=== PATIENT | male | born 1955 | race Caucasian/White ===

== ENCOUNTER 2019-11-04 10:51 | Emergency (ER) | payer MEDICARE ==
[2019-11-04] MEDS ORDERED: fentaNYL 100 MCG/2 ML SDV IVPUSH PRN (11:51)
[2019-11-04] MEDS ORDERED: Ondansetron 4 MG/2 ML SDV IVPUSH ONE (11:52)
[2019-11-04] MEDS ORDERED: Sodium Chloride 0.9% 1,000 ML IV SCH (12:00)
--- NOTE | 2019-11-04 12:02 | EDM.PDOC ---
ED HPI GENERAL MEDICAL PROBLEM - General Chief Complaint: General Stated Complaint: RIB PAIN AND SOB FROM FALL Time Seen by Provider: 11/04/19 11:55 Source of Information: Reports: Patient History Limitations: Reports: No Limitations - History of Present Illness INITIAL COMMENTS - FREE TEXT/NARRATIVE: 63-year-old male with a history of COPD and hypertension presents emergency d epartment with left anterior chest pain and left wrist discomfort. These were triggered by a fall on night. He landed on the left side of his body after tripping on a rock. He landed on hard cement. He fell from ending level. It is increased with any type of movement or deep breathing. It is moderately severe. Pain does not radiate. Denies any other injuries. He is a smoker and has a history of COPD. He drinks daily and his last alcohol intake was last night. Denies a history of withdrawal. Not drinking on the night that he was injured. Not have any immunocompromising conditions. Is not on anticoagulants. Left Chest Pain Score (Numeric/FACES): 10 - Related Data Allergies Allergy/AdvReac Type Severity Reaction Status Date / Time amoxicillin Allergy Rash Verified 11/04/19 11:20 Home Meds: Home Meds Albuterol Sulfate [Albuterol Sulfate Hfa] 1 applic IH Q4HR PRN 11/04/19 [History] Albuterol [Proventil Neb Soln] 2.5 mg IH Q4HR PRN 11/04/19 [History] Aspirin [Halfprin] 162 mg PO DAILY 11/04/19 [History] Lisinopril/Hydrochlorothiazide [Lisinopril-Hctz 10-12.5 mg Tab] 1 each PO DAILY 11/04/19 [History] Past Medical History HEENT History: Reports: Cataract Cardiovascular History: Reports: Hypertension Respiratory History: Reports: COPD Gastrointestinal History: Reports: GERD, Other (See Below) Other Gastrointestinal History: elevated liver enzymes Musculoskeletal History: Reports: Fracture Psychiatric History: Reports: Addiction, Depression Hematologic History: Reports: Anemia Dermatologic History: Reports: Eczema, Other (See Below) Other Dermatologic History: tinea pedis. warts - Infectious Disease History Infectious Disease History: Reports: C-Difficile, Measles - Past Surgical History HEENT Surgical History: Reports: Cataract Surgery GI Surgical History: Reports: Colonoscopy, Polypectomy Social & Family History - Tobacco Use Smoking Status *Q: Current Every Day Smoker Years of Tobacco use: 46 Packs/Tins Daily: 1 - Recreational Drug Use Recreational Drug Use: No ED ROS GENERAL - Review of Systems Review Of Systems: See Below Constitutional: Reports: No Symptoms HEENT: Reports: No Symptoms Respiratory: Reports: Shortness of Breath. Denies: Cough Cardiovascular: Reports: No Symptoms GI/Abdominal: Denies: Nausea, Vomiting : Reports: No Symptoms Musculoskeletal: Reports: Other (Wrist pain) Skin: Reports: Other (Abrasion left knee) Neurological: Denies: Confusion, Dizziness, Numbness ED EXAM, GENERAL - Physical Exam Exam: See Below Exam Limited By: No Limitations General Appearance: Alert, WD/WN, Moderate Distress Head: Atraumatic Neck: Normal Inspection, Supple, Non-Tender, Full Range of Motion Respiratory/Chest: No Respiratory Distress, Other (Decreased sounds on the left side.) Cardiovascular: Regular Rate, Rhythm, No Gallop, No Murmur Extremities: Other (Is swelling over the left wrist. No other deformities are present.) Neurological: Alert, Oriented, Normal Cognition, No Motor/Sensory Deficits Psychiatric: Normal Affect Skin Exam: Other (Abrasion left anterior knee) Course - Vital Signs Text/Narrative:: Presented to the ED with left anterior chest pain as well as left wrist discomfort. This started after a fall on . He has a white count of 16,000 which which is elevated but is secondary to pain. A CT scan of the chest with out contrast report is pending. He had x-ray of the left wrist which was interpreted by me. Shows no signs of fracture dislocation. Is given a left wrist splint. He has an abrasion to the left knee. He was given a tetanus booster. His basic metabolic profile shows hyponatremia of 130. He drinks a fair amount of fluids daily and was advised to cut back on it and his sodium levels up. His pain in the ED was treated with fentanyl initially but changed to Dilaudid when his pain persisted. He was given Zofran for nausea and a liter of IV fluids. Patient has multiple rib fractures involving the sixth or ninth rib on the left. I have discussed this case with the hospitalist service. The patient is being discharged home with a rib belt and oxycodone/325 mg 1 or 2 tablets every 6 hours as needed for pain. He can take ibuprofen for breakthrough pain. He will follow-up with primary care in 2 to 3 days. Patient will return here if he has any increased problems. Last Recorded V/S: Last Vital Signs Temp 35.8 C L 11/04/19 11:27 Pulse 108 H 11/04/19 13:19 Resp 16 11/04/19 13:19 BP 130/94 H 11/04/19 13:19 Pulse Ox 93 L 11/04/19 13:19 - Orders/Labs/Meds Orders: Active Orders 24 hr Category Date Time Status EKG Documentation Completion [RC] ASDIRECTED Care 11/04/19 11:57 Active Wrist Comp Min 3V Lt [CR] Stat Exams 11/04/19 11:53 Taken HYDROmorphone [Dilaudid] Med 11/04/19 13:07 Active 1 mg IVPUSH Q1H PRN Sodium Chloride 0.9% [Normal Saline] 1,000 ml Med 11/04/19 12:00 Active IV ASDIRECTED fentaNYL [Sublimaze] Med 11/04/19 11:51 Active 50 mcg IVPUSH Q6H PRN DME for Discharge [COMM] Stat Oth 11/04/19 13:09 Ordered EKG 12 Lead [EK] Routine Ther 11/04/19 11:56 Ordered Medication Orders Fentanyl (Sublimaze) 50 mcg IVPUSH Q6H PRN PRN Reason: Pain (severe 7-10) Last Admin: 11/04/19 12:15 Dose: 50 mcg Documented by: SAMAN Hydromorphone HCl (Dilaudid) 1 mg IVPUSH Q1H PRN PRN Reason: Pain Last Admin: 11/04/19 13:16 Dose: 1 mg Documented by: PREILOR Sodium Chloride (Normal Saline) 1,000 mls @ 1,000 mls/hr IV ASDIRECTED LAUREN Last Admin: 11/04/19 12:16 Dose: 1,000 mls/hr Documented by: SAMAN Labs: Laboratory Tests 11/04/19 11/04/19 Range/Units 12:12 12:12 WBC 16.4 H (4.5-11.0) K/uL RBC 4.29 L (4.30-5.90) M/uL Hgb 14.9 (12.0-15.0) g/dL Hct 43.8 (40.0-54.0) % MCV 102 H (80-98) fL MCH 35 H (27-31) pg MCHC 34 (32-36) % Plt Count 394 (150-400) K/uL Sodium 130 L (140-148) mmol/L Potassium 4.2 (3.6-5.2) mmol/L Chloride 94 L (100-108) mmol/L Carbon Dioxide 22 (21-32) mmol/L Anion Gap 18.2 H (5.0-14.0) mmol/L BUN 11 (7-18) mg/dL Creatinine 1.0 (0.8-1.3) mg/dL Est Cr Clr Drug Dosing 78.44 mL/min Estimated GFR (MDRD) > 60 (>60) Glucose 94 (74-106) mg/dL Calcium 9.5 (8.5-10.1) mg/dL Meds: Medications Generic Name Dose Route Start Last Admin Trade Name Freq PRN Reason Stop Dose Admin Fentanyl 50 mcg 11/04/19 11:51 11/04/19 12:15 Sublimaze IVPUSH 50 mcg Q6H PRN Administration Pain (severe 7-10) Hydromorphone HCl 1 mg 11/04/19 13:07 11/04/19 13:16 Dilaudid IVPUSH 1 mg Q1H PRN Administration Pain Sodium Chloride 1,000 mls @ 1,000 mls/hr 11/04/19 12:00 11/04/19 12:16 Normal Saline IV 1,000 mls/hr ASDIRECTED LAUREN Administration Discontinued Medications Generic Name Dose Route Start Last Admin Trade Name Freq PRN Reason Stop Dose Admin Ketorolac Tromethamine 15 mg 11/04/19 14:08 Toradol IM 11/04/19 14:09 ONETIME ONE Ketorolac Tromethamine 15 mg 11/04/19 14:11 Toradol IVPUSH 11/04/19 14:12 ONETIME ONE Ondansetron HCl 4 mg 11/04/19 11:52 11/04/19 12:15 Zofran IVPUSH 11/04/19 11:53 4 mg ONETIME ONE Administration Departure - Departure Time of Disposition: 14:15 Disposition: Home, Self-Care 01 Condition: Good, Fair Clinical Impression: Multiple rib fractures involving four or more ribs - Discharge Information *PRESCRIPTION DRUG MONITORING PROGRAM REVIEWED*: No *COPY OF PRESCRIPTION DRUG MONITORING REPORT IN PATIENT ALVARO: No Instructions: Rib Fracture, [id number] Referrals: PCP,None [Primary Care Provider] - Forms: ED Department Discharge Additional Instructions: Take the prescription pain medication as directed. Use ibuprofen if you have breakthrough pain. Use a rib belt during the daytime but remove it at night when you sleep. Try sleeping in a recliner. Follow-up with your primary care doctor in 2 to 3 days in the clinic. Return to the ED if your pain persists without the. Sepsis Event Note (ED) - Evaluation Sepsis Screening Result: No Definite Risk - Focused Exam Vital Signs: Vital Signs Temp Pulse Resp BP Pulse Ox 11/04/19 13:19 108 H 16 130/94 H 93 L 11/04/19 11:27 35.8 C L 120 H 16 143/85 H 95 11/04/19 11:09 35.8 C L 120 H 16 143/85 H 95 - My Orders Last 24 Hours: My Active Orders 11/04/19 11:51 fentaNYL [Sublimaze] 50 mcg IVPUSH Q6H PRN 11/04/19 11:53 Wrist Comp Min 3V Lt [CR] Stat 11/04/19 11:56 EKG 12 Lead [EK] Routine 11/04/19 11:57 EKG Documentation Completion [RC] ASDIRECTED 11/04/19 12:00 Sodium Chloride 0.9% [Normal Saline] 1,000 ml IV ASDIRECTED 11/04/19 13:07 HYDROmorphone [Dilaudid] 1 mg IVPUSH Q1H PRN 11/04/19 13:09 DME for Discharge [COMM] Stat - Assessment/Plan Last 24 Hours: My Active Orders 11/04/19 11:51 fentaNYL [Sublimaze] 50 mcg IVPUSH Q6H PRN 11/04/19 11:53 Wrist Comp Min 3V Lt [CR] Stat 11/04/19 11:56 EKG 12 Lead [EK] Routine 11/04/19 11:57 EKG Documentation Completion [RC] ASDIRECTED 11/04/19 12:00 Sodium Chloride 0.9% [Normal Saline] 1,000 ml IV ASDIRECTED 11/04/19 13:07 HYDROmorphone [Dilaudid] 1 mg IVPUSH Q1H PRN 08/30/20 13:09 DME for Discharge [COMM] Stat
[2019-11-04] MEDS ORDERED: HYDROmorphone 1 MG/ML Syringe IVPUSH PRN (13:07)
--- NOTE | 2019-11-04 13:57 | CRLCT ---
INDICATION: Injury from fall. COMPARISON: None. TECHNIQUE: CT chest without contrast. FINDINGS: Heart is normal in size. Mild to moderate coronary artery calcifications. No pericardial effusion. No enlarged lymph nodes identified in the chest. Hypoattenuating hepatic foci are incompletely characterized. Cholelithiasis. Bones are demineralized. Age-indeterminate mild compression fracture deformity of T11 vertebral body. Minimally displaced left 6th through 9th rib fractures. No focal lung consolidation, pleural effusion or pneumothorax. Linear left basilar subsegmental atelectasis/scarring. Faint patchy left upper lobe opacities (series 9, image 34). No suspicious pulmonary nodule or mass. Calcified granuloma in the right upper lobe. IMPRESSION: 1. Left rib sixth through ninth rib fractures. 2. Patchy opacities in the left upper lobe which could be due to infection/inflammation. 3. Mild age-indeterminate compression fracture deformity of T11 vertebral body. 4. Cholelithiasis. Please note that all CT scans at this facility use dose modulation, iterative reconstruction, and/or weight-based dosing when appropriate to reduce radiation dose to as low as reasonably achievable. Dictated by Shaoib Hernandez MD @ Nov 04 2019 1:44PM Signed by Dr. Shoaib Hernandez @ Nov 04 2019 1:55PM
[2019-11-04] MEDS ORDERED: Ketorolac 30 MG/ML SDV IM ONE (14:08)
[2019-11-04] MEDS ORDERED: Ketorolac 60 MG/2 ML SDV IVPUSH ONE (14:11)
--- NOTE | 2019-11-05 14:19 | CR ---
Wrist Comp Min 3V Lt CLINICAL HISTORY: Injury FINDINGS: There is no acute fracture or dislocation within the left wrist. There are some soft tissue ossifications both dorsal and palmar in location. Impression: Soft tissue calcifications No fracture or dislocation
== END 2019-11-04 14:54 | disposition home or self-care (01) ==
LOC: JP.ED 10:51
DX: S22.42XA Multiple fractures of ribs, left side, initial encounter for closed fracture (principal); S80.212A Abrasion, left knee, initial encounter; M79.89 Other specified soft tissue disorders; I10 Essential (primary) hypertension; J44.9 Chronic obstructive pulmonary disease, unspecified; F17.210 Nicotine dependence, cigarettes, uncomplicated; Z88.1 Allergy status to other antibiotic agents; Z79.82 Long term (current) use of aspirin; Z79.899 Other long term (current) drug therapy; W01.0XXA Fall on same level from slipping, tripping and stumbling without subsequent striking against object, initial encounter
CPT/HCPCS: 36415; 71250; 73110; 80048; 85027; 93005; 93010; 99283; 99284; J1170; J1885; J2405; J3010; J7030

== ENCOUNTER 2020-07-02 23:58 | Emergency (ER) | payer MEDICARE ==
[2020-07-03] MEDS ORDERED: Ketorolac 30 MG/ML SDV IVPUSH ONE (00:20)
--- NOTE | 2020-07-03 00:23 | EDM.PDOC ---
ED HPI GENERAL MEDICAL PROBLEM - General Chief Complaint: Chest Pain Stated Complaint: FALL VIA [place] Time Seen by Provider: 07/03/20 00:14 Source of Information: Reports: Patient, RN Notes Reviewed History Limitations: Reports: No Limitations - History of Present Illness INITIAL COMMENTS - FREE TEXT/NARRATIVE: 64-year-old gentleman presents to the emergency department today via EMS services, he states he has had chest pain since early this morning he is concerned about his heart he also has chest pain from a fall he does use alcohol daily he states he fell earlier today and landed on his chest he does have a history of falling a couple weeks ago unfortunately landed in the same spot complains of shortness of breath especially with deep breath chest pain no nausea vomiting no diaphoresis 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 Left Chest Pain Score (Numeric/FACES): 5 - Related Data Allergies Allergy/AdvReac Type Severity Reaction Status Date / Time amoxicillin Allergy Rash Verified 07/03/20 00:08 Home Meds: Home Meds Albuterol Sulfate [Albuterol Sulfate Hfa] 1 applic IH Q4HR PRN 11/04/19 [History] Albuterol [Proventil Neb Soln] 2.5 mg IH Q4HR PRN 11/04/19 [History] Aspirin [Halfprin] 162 mg PO DAILY 11/04/19 [History] Lisinopril/Hydrochlorothiazide [Lisinopril-Hctz 10-12.5 mg Tab] 1 each PO DAILY 11/04/19 [History] Past Medical History HEENT History: Reports: Cataract Cardiovascular History: Reports: Hypertension, NM (No official diagnosis patient believes this happened in the past) Respiratory History: Reports: COPD Gastrointestinal History: Reports: GERD, Other (See Below) Other Gastrointestinal History: elevated liver enzymes Musculoskeletal History: Reports: Fracture Psychiatric History: Reports: Addiction, Depression Hematologic History: Reports: Anemia Dermatologic History: Reports: Eczema, Other (See Below) Other Dermatologic History: tinea pedis. warts - Infectious Disease History Infectious Disease History: Reports: C-Difficile, Measles - Past Surgical History HEENT Surgical History: Reports: Cataract Surgery GI Surgical History: Reports: Colonoscopy, Polypectomy Social & Family History - Tobacco Use Tobacco Use Status *Q: Current Every Day Tobacco User Years of Tobacco use: 53 Packs/Tins Daily: 1 - Caffeine Use Caffeine Use: Reports: None - Alcohol Use Days Per Week of Alcohol Use: 7 Number of Drinks Per Day: 5 Total Drinks Per Week: 35 Date of Last Drink: 07/03/20 - Recreational Drug Use Recreational Drug Use: Yes Drug Use in Last 12 Months: Yes Recreational Drug Type: Reports: Marijuana/Hashish Recreational Drug Use Frequency: Daily ED ROS GENERAL - Review of Systems Review Of Systems: See Below Constitutional: Reports: No Symptoms HEENT: Reports: No Symptoms Respiratory: Reports: Shortness of Breath Cardiovascular: Reports: Chest Pain, Dyspnea on Exertion GI/Abdominal: Reports: No Symptoms ED EXAM, GENERAL - Physical Exam Exam: See Below Exam Limited By: No Limitations General Appearance: Alert, WD/WN, No Apparent Distress Respiratory/Chest: No Respiratory Distress, Lungs Clear, Normal Breath Sounds, No Accessory Muscle Use, Other (Anterior chest is tender predominantly on the left side) Cardiovascular: Regular Rate, Rhythm, No Murmur GI/Abdominal: Soft, Non-Tender Course - Vital Signs Last Recorded V/S: Last Vital Signs Temp 97.5 F 07/03/20 00:26 Pulse 66 07/03/20 00:48 Resp 18 07/03/20 00:48 BP 91/51 L 07/03/20 00:48 Pulse Ox 97 07/03/20 00:48 - Orders/Labs/Meds Orders: Active Orders 24 hr Category Date Time Status Cardiac Monitoring [RC] .As Directed Care 07/03/20 00:19 Active EKG Documentation Completion [RC] ASDIRECTED Care 07/03/20 00:20 Active Chest 2V [CR] Stat Exams 07/03/20 00:20 Taken Sodium Chloride 0.9% [Normal Saline] 1,000 ml Med 07/03/20 01:16 Active IV .BOLUS EKG 12 Lead [EK] Stat Ther 07/03/20 00:20 Ordered Medication Orders Sodium Chloride (Normal Saline) 1,000 mls @ 999 mls/hr IV .BOLUS ONE Stop: 07/03/20 02:16 Last Admin: 07/03/20 01:18 Dose: 999 mls/hr Documented by: SIXTO Labs: Laboratory Tests 07/03/20 07/03/20 Range/Units 00:30 00:30 WBC 10.8 (4.5-11.0) K/uL RBC 3.40 L (4.30-5.90) M/uL Hgb 11.7 L D (12.0-15.0) g/dL Hct 34.4 L (40.0-54.0) % MCV 101 H (80-98) fL MCH 34 H (27-31) pg MCHC 34 (32-36) % Plt Count 374 (150-400) K/uL Neut % (Auto) 73 H (36-66) % Lymph % (Auto) 16 L (24-44) % [place] % (Auto) 11 H (2-6) % Eos % (Auto) 1 L (2-4) % Baso % (Auto) 0 (0-1) % Sodium 132 L (140-148) mmol/L Potassium 3.5 L (3.6-5.2) mmol/L Chloride 96 L (100-108) mmol/L Carbon Dioxide 22 (21-32) mmol/L Anion Gap 17.5 H (5.0-14.0) mmol/L BUN 11 (7-18) mg/dL Creatinine 1.0 (0.8-1.3) mg/dL Est Cr Clr Drug Dosing 77.39 mL/min Estimated GFR (MDRD) > 60 (>60) Glucose 116 H (74-106) mg/dL Calcium 8.4 L (8.5-10.1) mg/dL Total Bilirubin 0.6 (0.2-1.0) mg/dL AST 71 H (15-37) U/L ALT 52 (12-78) U/L Alkaline Phosphatase 156 H (46-116) U/L Troponin I < 0.017 (0.000-0.056) ng/mL Total Protein 6.6 (6.4-8.2) g/dL Albumin 3.0 L (3.4-5.0) g/dL Globulin 3.6 H (2.3-3.5) g/dL Albumin/Globulin Ratio 0.8 L (1.2-2.2) Meds: Medications Generic Name Dose Route Start Last Admin Trade Name Freq PRN Reason Stop Dose Admin Sodium Chloride 1,000 mls @ 999 mls/hr 07/03/20 01:16 07/03/20 01:18 Normal Saline IV 07/03/20 02:16 999 mls/hr .BOLUS ONE Administration Discontinued Medications Generic Name Dose Route Start Last Admin Trade Name Freq PRN Reason Stop Dose Admin Ketorolac Tromethamine 30 mg 07/03/20 00:20 07/03/20 00:25 Ketorolac 30 Mg/Ml Sdv IVPUSH 07/03/20 00:21 30 mg ONETIME ONE Administration Departure - Departure Time of Disposition: 02:12 Disposition: Home, Self-Care 01 Condition: Fair Clinical Impression: Multiple rib fractures involving four or more ribs Instructions: Rib Fracture, [id number] Referrals: PCP,None [Primary Care Provider] - Forms: ED Department Discharge Additional Instructions: Use ibuprofen for baseline pain control use hydrocodone for breakthrough pain, please followup with your primary care provider in 3-5 days if not better, please call return to the emergency department with worsening of symptoms. Sepsis Event Note (ED) - Focused Exam Vital Signs: Vital Signs Temp Pulse Resp BP Pulse Ox 07/03/20 00:48 66 18 91/51 L 97 07/03/20 00:28 72 18 90/52 L 07/03/20 00:26 97.5 F 76 15 96/56 L 98 07/03/20 00:23 97.5 F 76 15 96/56 L 98 - My Orders Last 24 Hours: My Active Orders 07/03/20 00:19 Cardiac Monitoring [RC] .As Directed 07/03/20 00:20 EKG Documentation Completion [RC] ASDIRECTED Chest 2V [CR] Stat EKG 12 Lead [EK] Stat 07/03/20 01:16 Sodium Chloride 0.9% [Normal Saline] 1,000 ml IV .BOLUS - Assessment/Plan Last 24 Hours: My Active Orders 07/03/20 00:19 Cardiac Monitoring [RC] .As Directed 07/03/20 00:20 EKG Documentation Completion [RC] ASDIRECTED Chest 2V [CR] Stat EKG 12 Lead [EK] Stat 07/03/20 01:16 Sodium Chloride 0.9% [Normal Saline] 1,000 ml IV .BOLUS Plan: Assessment Acuity = acute Site and laterality = chest wall pain question rib fractures Etiology = secondary to fall complicated by alcohol Manifestations = none Location of injury = Home Lab values = hemoglobin low 11.7 consistent microchromic anemia sodium low at 132 consistent hyponatremia troponin was negative EKG demonstrates sinus rhythm no ST elevations or depressions chest x-ray question area of rib fracture left side inferior rib area anterior chest pressure read radiologist pending Plan He had good relief with Toradol provided in the ED prescription written for hydrocodone 1 tab p.o. 3 times daily as needed total #6 follow-up primary care 3 to 5 days if not better This note was dictated using [employer] voice recognition software please call with any questions on syntax or grammar.
[2020-07-03] MEDS ORDERED: Sodium Chloride 0.9% 1,000 ML IV ONE (01:16)
--- NOTE | 2020-07-03 08:50 | CR ---
CHEST: 2 view CLINICAL HISTORY:Chest pain COMPARISON:October 2019 FINDINGS: Heart size pulmonary vascularity are normal. There are streaky density in the left lower lobe. Some of this is present on a previous CT from 2019. This appears to increase slightly. Lungs are generally hyperaerated. There are some old left lower rib fractures. IMPRESSION: Patchy airspace disease in the left lower lobe. Some of this was seen on the CT in October 2019. This has increased. Superimposed infiltrate is not excluded Old left rib fractures COPD
== END 2020-07-03 02:48 | disposition home or self-care (01) ==
LOC: JP.ED 23:58
DX: S22.42XA Multiple fractures of ribs, left side, initial encounter for closed fracture (principal); I10 Essential (primary) hypertension; I25.2 Old myocardial infarction; J44.9 Chronic obstructive pulmonary disease, unspecified; Z79.82 Long term (current) use of aspirin; Z79.899 Other long term (current) drug therapy; Z72.0 Tobacco use; W19.XXXA Unspecified fall, initial encounter
CPT/HCPCS: 36415; 71046; 80053; 84484; 85025; 93005; 96374; 99285; J1885; J7030; 99284